=== PATIENT | male | born 1995 | race Two or more races ===

== ENCOUNTER 2017-06-21 04:10 | Emergency (ER) | payer OTHER ==
[~2017-06-21] VITALS: Ht 188 cm; Wt 68.0 kg
[2017-06-21 04:38] LABS: Urine Bilirubin Negative (Negative); Urine Blood 1+ /uL (Negative); Urine Color Yellow (Yellow); Urine Glucose Normal (Normal); Urine Ketone 1+ (Negative); Urine Nitrite Negative (Negative); Urine RBC 1 /hpf (0 - 3); Urine Squamous Epithelial Cell FEW /hpf (<5); Urine Urobilinogen Normal (Negative); Urine pH 5.5 (5.0-8.0)
[2017-06-21] MEDS ORDERED: TETANUS-DIPTH-ACEL PERTUSSIS 0.5ML SYRG IM ONE (08:00)
[2017-06-21 08:39] VITALS: BP 120/67
== END 2017-06-21 08:55 | disposition home or self-care (01) ==
LOC: ER 04:12
DX: S00.03XA Contusion of scalp, initial encounter (principal); S60.511A Abrasion of right hand, initial encounter; S30.810A Abrasion of lower back and pelvis, initial encounter; S20.311A Abrasion of right front wall of thorax, initial encounter; Y08.89XA Assault by other specified means, initial encounter; Y93.89 Activity, other specified; Y92.89 Other specified places as the place of occurrence of the external cause; Y99.8 Other external cause status
CPT/HCPCS: 70450; 70480; 81001; 90471; 90715